=== PATIENT | male | born 1980 ===

== ENCOUNTER 2017-12-31 15:38 | Emergency (ER) | payer SELFPAY ==
[2017-12-31] MEDS ORDERED: Sodium Chloride 0.9% 1,000 ML IV STA (16:19)
--- NOTE | 2017-12-31 16:30 | ED PDOC ---
HPI: Psych/Substance Abuse Time Seen by Provider: 12/31/17 15:54 Chief Complaint (Nursing): Chest Pain Chief Complaint (Provider): Alcohol Ingestion History Per: Patient History/Exam Limitations: no limitations Onset/Duration Of Symptoms: Days (x4) Current Symptoms Are (Timing): Still Present Modifying Factor(s): Alcohol Additional Complaint(s): 37 year old male presents to the ED for alcohol intoxication, onset 4 days ago. Patient states for the past 4 days, he has been binge drinking. Patient reports of drinking one whole bottle of Tequila. Patient is now complaining of left sided chest pain associated with nausea and right lower quadrant abdominal pain. Patient also reports today he noticed bright red blood in his vomit. Denies trauma, shortness of breath, palpitations, head injury, sore throat, melena, hematochezia, and BRBPR PMD: None Provided Past Medical History Reviewed: Historical Data, Nursing Documentation, Vital Signs Vital Signs: Last Vital Signs Temp 98.3 F 12/31/17 15:47 Pulse 90 12/31/17 15:47 Resp 18 12/31/17 15:47 BP 139/86 12/31/17 15:47 Pulse Ox 99 12/31/17 15:47 - Medical History PMH: No Chronic Diseases - Surgical History Surgical History: No Surg Hx - Family History Family History: States: Unknown Family Hx - Social History Alcohol: > 2 Drinks/Day - Allergies Allergies/Adverse Reactions: Allergies Allergy/AdvReac Type Severity Reaction Status Date / Time No Known Allergies Allergy Verified 12/31/17 15:50 Review of Systems ROS Statement: Except As Marked, All Systems Reviewed And Found Negative Cardiovascular: Positive for: Chest Pain (Left sided). Negative for: Palpitations Respiratory: Negative for: Shortness of Breath Gastrointestinal: Positive for: Nausea, Vomiting (1 episode of bloody vomit. ), Abdominal Pain (right lower quadrant ). Negative for: Melena, Hematochezia Psych: Positive for: Other (EtOH Intoxication ) Physical Exam - Reviewed Nursing Documentation Reviewed: Yes Vital Signs Reviewed: Yes - Physical Exam Appears: Positive for: No Acute Distress Head Exam: Positive for: ATRAUMATIC, NORMOCEPHALIC Skin: Positive for: Normal Color, Warm, Dry Eye Exam: Positive for: Normal appearance, EOMI, PERRL Neck: Positive for: Normal, Painless ROM Cardiovascular/Chest: Positive for: Regular Rate, Rhythm. Negative for: Murmur Respiratory: Positive for: Normal Breath Sounds. Negative for: Respiratory Distress Gastrointestinal/Abdominal: Positive for: Normal Exam, Tenderness (Mild right lower quadrant ) Extremity: Positive for: Normal ROM. Negative for: Pedal Edema, Deformity Neurologic/Psych: Positive for: Alert, Oriented, Gait (steady (unassisted)), Other (Alcohol on breath. Speech is slurred. ). Negative for: Motor/Sensory Deficits - Laboratory Results Result Diagrams: 12/31/17 16:35 12/31/17 16:33 - ECG O2 Sat by Pulse Oximetry: 99 (RA) Pulse Ox Interpretation: Normal Medical Decision Making Medical Decision Making: Time: 1618 Plan: -- CT Abd & Pelvis IV Contrast -- Urinalysis -- IV Insertion -- Zofran Inj 4 mg IVP -- Pantoprazole 80 mg IVP -- Sodium Chloride IV 1000 mls/hr -- CXR Portable -- Urine Drug Screen -- EKG Time: 1927 Plan: -- Type and Screen -- Alcohol Serum -- CMP -- Lipase -- CBC with differentials -- D Dimer [COAG] -- PTT -- PT/INR 1943 Pt. began c/o chest pain which started after Reglan infusion. On re-evaluation, pt. appears anxious and is pointing to the L side of the chest. secured entrance monitor SR at [address]-T wave changes. Repeat EKG, Benadryl 50mg IV ordered. D/W Dr. Castro who agrees with care. Scribe Attestation: Documented by Bennie Christine acting as a scribe for Ever Méndez PA-C. Provider Scribe Attestation: All medical record entries made by the Scribe were at my direction and personally dictated by me. I have reviewed the chart and agree that the record accurately reflects my personal performance of the history, physical exam, medical decision making, and the department course for this patient. I have also personally directed, reviewed, and agree with the discharge instructions and disposition. Disposition - Clinical Impression Clinical Impression: Chest pain, Alcohol abuse with intoxication - Patient ED Disposition Is Patient to be Admitted: Transfer of Care (Signed out to Christian BENTON pending re-evaluation,) - Disposition Referrals: [facility] [Outside] Disposition Time: 20:00 Condition: STABLE Instructions: Chest Pain, Alcohol Abuse and Alcoholism (DC) Forms: [facility] ([place]) Print Language: JORDANIAN
[2017-12-31 16:52] LABS: BASO % 0.3 % (0.0-2.0); EOS % 0.3 % (0.0-4.0); HEMOGLOBIN 17.7 g/dL (12.0-18.0); LYMPH # 2.2 K/uL (1.0-4.3); LYMPH % 29.6 % (20.0-40.0); MEAN CELL VOLUME 83.1 fl (80.0-94.0); MEAN CORPUSCULAR HEMOGLOBIN 28.2 pg (27.0-31.0); MEAN CORPUSCULAR HGB CONC 33.9 g/dL (33.0-37.0); MEAN PLATELET VOLUME 8.8 fl (7.2-11.7); MONO # 0.3 K/uL (0.0-0.8); MONO % 3.8 % (0.0-10.0); NEUT # 4.9 K/uL (1.8-7.0); NRBC % 0.1 % (0.0-0.0); RBC 6.3 Mil/uL (4.40-5.90); RED CELL DISTRIBUTION WIDTH 13.6 % (11.5-14.5); WHITE BLOOD COUNT 7.4 K/uL (4.8-10.8)
[2017-12-31 16:58] LABS: ALB/GLOB RATIO 1.3 (1.0-2.1); ALBUMIN 4.4 g/dL (3.5-5.0); ALT/SGPT 44 U/L (21-72); AST/SGOT 39 U/L (17-59); BLOOD UREA NITROGEN 13 mg/dl (9-20); CALCIUM 8.5 mg/dL (8.4-10.2); GFR NON-AFRICAN AMERICAN > 60; LIPASE 90 U/L (23-300)
[2017-12-31] MEDS ORDERED: Iohexol 300 100 ML IJ ONE (16:58)
[2017-12-31] MEDS ORDERED: Sodium Chloride 0.9% 50 ML IV ONE (16:58)
--- NOTE | 2017-12-31 17:31 | RAD ---
Date of service: 12/31/2017 HISTORY: vomiting COMPARISON: No prior. FINDINGS: LUNGS: No active pulmonary disease. PLEURA: No significant pleural effusion identified, no pneumothorax apparent. CARDIOVASCULAR: Normal. OSSEOUS STRUCTURES: No significant abnormalities. VISUALIZED UPPER ABDOMEN: Normal. OTHER FINDINGS: None. IMPRESSION: No active disease.
[2017-12-31 17:40] LABS: PARTIAL THROMBOPLASTIN TIME 26.8 Seconds (25.6-37.1); PROTHROMBIN TIME 11.6 Seconds (9.8-13.1)
--- NOTE | 2017-12-31 18:34 | CT ---
Date of service: 12/31/2017 PROCEDURE: CT Abdomen and Pelvis with contrast HISTORY: RLQ pain COMPARISON: None. TECHNIQUE: Contrast dose: 95 mL Omnipaque 300 Radiation dose: Total exam DLP = 622.9 mGy-cm. This CT exam was performed using one or more of the following dose reduction techniques: Automated exposure control, adjustment of the mA and/or kV according to patient size, and/or use of iterative reconstruction technique. FINDINGS: LOWER THORAX: Unremarkable. LIVER: Hepatic steatosis. No gross lesion or ductal dilatation. GALLBLADDER AND BILE DUCTS: Unremarkable. PANCREAS: Unremarkable. No gross lesion or ductal dilatation. SPLEEN: Unremarkable. ADRENALS: Unremarkable. No mass. KIDNEYS AND URETERS: Unremarkable. No hydronephrosis. No solid mass. VASCULATURE: Unremarkable. No aortic aneurysm. BOWEL: Mild colonic diverticulosis. No obstruction. No gross mural thickening. APPENDIX: Prior appendectomy. PERITONEUM: Tiny fat containing umbilical hernia. Small fat containing left inguinal hernia. No free fluid. No free air. LYMPH NODES: Unremarkable. No enlarged lymph nodes. BLADDER: Unremarkable. REPRODUCTIVE: Unremarkable. BONES: No acute fracture. OTHER FINDINGS: None. IMPRESSION: No acute abdominal pelvic pathology.
[2017-12-31] MEDS ORDERED: Multivitamin (MVI) 10 ML, Thiamine 100 MG, Folic Acid 1 MG in Sodium Chloride 0.9% 1,00... IV ONE (18:49)
[2017-12-31] MEDS ORDERED: DiphenhydrAMINE 50 mg/ml Inj IVP STA (19:37)
[2017-12-31 19:49] LABS: URINE BILIRUBIN NEGATIVE (NEGATIVE); URINE BLOOD NEGATIVE (NEGATIVE); URINE CLARITY CLEAR (Clear); URINE COLOR YELLOW (YELLOW); URINE GLUCOSE (UA) NEG (Normal); URINE LEUKOCYTE ESTERASE NEG Leu/uL (Negative); URINE PROTEIN NEGATIVE (NEGATIVE); URINE UROBILINOGEN 0.2-1.0 mg/dL (0.2-1.0)
[2017-12-31 20:11] LABS: BARBITURATES, UR NEGATIVE (NEGATIVE); BENZODIAZEPINES, UR NEGATIVE (NEGATIVE); OPIATES, UR NEGATIVE (NEGATIVE); PHENCYCLIDINE, UR NEGATIVE (NEGATIVE)
--- NOTE | 2017-12-31 22:39 | ED PDOC ---
- Laboratory Results Result Diagrams: 12/31/17 16:35 12/31/17 16:33 - ECG O2 Sat by Pulse Oximetry: 99 (RA) Medical Decision Making Medical Decision Makin:00 Patient endrosed to me by Ever Méndez PA-C. Patient to be observed for sobriety. Labs reviewed. Troponin negative. D Dimer negative. CXR showed NAD. CT Abdomen WNL. 2200 Patient is sleeping comfortably, VSS. 0000 On re-evaluation, is sleeping, but arouses easily, patient reports improvement of symptoms, still c/o mild nausea and L sided chest discomfort, denies any SOB , or abdominal pain. He admits to binge drinking x 4 days, he reports he normally drinks only on the weekends. On exam, patient is AAOx3, in no acute distress. Lungs clear to auscultation, cardiac RRR, abdomen soft, non-tender, repeat neuro exam shows no focal findings. Repeat troponin ordered. Patient given zofran 4 mg IV. 0100 Repeat trop (-). VSS. Patient speaking in full sentences, no slurred speech, no tremors, able to stand up and ambulate with a steady gait. Based on history, exam and diagnostic results, plan will be for outpatient follow up. Patient instructed to follow-up with pmd or the clinic in 1-2 days without fail. Return to the emergency room at any time for any new or worsening symptoms. Patient states he fully agrees with and understands discharge instructions. States that he agrees with the plan and disposition. Verbalized and repeated discharge instructions and plan. I have given the patient opportunity to ask any additional questions. Scribe Attestation: Documented by Justin Smith, acting as a scribe for Arin Gonzales PA-C. Provider Scribe Attestation: All medical record entries made by the Ramonaibmaggie were at my direction and personally dictated by me. I have reviewed the chart and agree that the record accurately reflects my personal performance of the history, physical exam, medical decision making, and the department course for this patient. I have also personally directed, reviewed, and agree with the discharge instructions and disposition. Disposition Counseled Patient/Family Regarding: Studies Performed, Diagnosis, Need For Followup - Clinical Impression Clinical Impression: Chest pain, Alcohol abuse with intoxication - POA Present On Arrival: None - Disposition Referrals: [facility] [Outside] Disposition: Routine/Home Disposition Time: 01:00 Condition: STABLE Instructions: Chest Pain, Alcohol Abuse and Alcoholism (DC) Forms: [facility] (Tongan) Print Language: CROATIAN - PA / PARIMUTUEL CASHIER / Resident Statement / has reviewed & agrees with the documentation as recorded.
[2018-01-01 01:51] VITALS: BP 120/82; PULSE 82; RESP 18; TEMP 98
[2018-01-01 02:39] VITALS: O2SAT 99
--- NOTE | 2018-01-02 20:48 | CARD ---
APPROVED REPORT Date of service: 12/31/2017 EKG Measurement Heart [id number] <Conclusion> Normal sinus rhythm Normal ECG
== END 2018-01-01 01:56 | disposition home or self-care (01) ==
LOC: H.ER 15:38
DX: F10.129 Alcohol abuse with intoxication, unspecified (principal); R07.89 Other chest pain; R10.31 Right lower quadrant pain
CPT/HCPCS: 71045; 74177; 80053; 81003; 83690; 84484; 85025; 85378; 85610; 85730; 86850; 86900; 93005; 96374; 96375; 96376; 99285; C9113; G0480; J1200; J2405; J2765; J3411; J7030; Q9967

== ENCOUNTER 2018-09-01 13:58 | Emergency (ER) | payer OTHER ==
[2018-09-01 14:07] VITALS: O2SAT 99
[2018-09-01] MEDS ORDERED: Sodium Chloride 0.9% 1,000 ML IV SCH ×2 (15:00→16:45)
[2018-09-01 15:22] LABS: BASO % 0.6 % (0.0-2.0); EOS % 0.1 % (0.0-4.0); HEMOGLOBIN 17.1 g/dL (12.0-18.0); LYMPH # 2.3 K/uL (1.0-4.3); LYMPH % 36.9 % (20.0-40.0); MEAN CELL VOLUME 83.4 fl (80.0-94.0); MEAN CORPUSCULAR HEMOGLOBIN 28.2 pg (27.0-31.0); MEAN CORPUSCULAR HGB CONC 33.8 g/dL (33.0-37.0); MEAN PLATELET VOLUME 8.5 fl (7.2-11.7); MONO # 0.4 K/uL (0.0-0.8); MONO % 6.9 % (0.0-10.0); NEUT # 3.4 K/uL (1.8-7.0); NEUT % 55.5 % (50.0-75.0); NRBC % 0.1 % (0.0-0.0); RBC 6.05 Mil/uL (4.40-5.90); RED CELL DISTRIBUTION WIDTH 13.6 % (11.5-14.5); WHITE BLOOD COUNT 6.2 K/uL (4.8-10.8)
--- NOTE | 2018-09-01 15:39 | RAD ---
Date of service: 09/01/2018 PROCEDURE: CHEST RADIOGRAPH, 1 VIEW HISTORY: chest pain COMPARISON: 12/31/2017 FINDINGS: LUNGS: Clear. PLEURA: No pneumothorax or pleural fluid seen. CARDIOVASCULAR: No aortic atherosclerotic calcification present. Normal. OSSEOUS STRUCTURES: No significant abnormalities. VISUALIZED UPPER ABDOMEN: Normal. OTHER FINDINGS: None. IMPRESSION: No active disease.No interval pathology noted.
[2018-09-01 16:01] LABS: ALB/GLOB RATIO 1.3 (1.0-2.1); ALBUMIN 4.3 g/dL (3.5-5.0); ALT/SGPT 54 U/L (21-72); AST/SGOT 68 U/L (17-59); BLOOD UREA NITROGEN 17 mg/dl (9-20); CALCIUM 8.9 mg/dL (8.4-10.2); GFR NON-AFRICAN AMERICAN > 60; LIPASE 105 U/L (23-300)
--- NOTE | 2018-09-01 16:22 | ED PDOC ---
HPI: Chest Pain Additional History Per: Patient Additional Complaint(s): This 37 y/o with no significant PMH comes to the ER c/o 1 day hx of non radiating left side chest pain. Patient reports he has been binge drinking hard liquor since last 3 days, chest pain started yesterday while he was laying down, comes and goes, sharp in nature, 5/10, changes with respiration, + dizziness, mild SOB, + nausea and + palpitations. denies any fever/chills/vomiting, diarrhea or trauma. PMH: Denies PSH: Denies Allg: NKDA SH: Binge drinking FH: + heart disease and stroke <Yady Mendoza - Last Filed: 09/01/18 17:34> <Francis Mina III - Last Filed: 09/02/18 12:51> Time Seen by Provider: 09/01/18 14:40 Chief Complaint (Nursing): Chest Pain Supervising Attending Note - Attestation: I have personally seen and examined this patient.: Yes I have fully participated in the care of the patient.: Yes I have reviewed all pertinent clinical information: Yes - Notes: Notes:: pt seen/examined and results reviewed re-eval vitals stable, has palpable anterior chest tenderness but CXR neg, no palpable mass or abscess, stable for outpatient followup, encourage alcohol abstinence. <Francis Mina III - Last Filed: 09/02/18 12:51> Past Medical History Vital Signs: Last Vital Signs Temp 97.7 F 09/01/18 14:06 Pulse 90 09/01/18 14:06 Resp 16 09/01/18 14:06 BP 132/76 09/01/18 14:06 Pulse Ox 99 09/01/18 14:06 - Surgical History Surgical History: Appendectomy - Family History Family History: States: Unknown Family Hx - Immunization History Hx Tetanus Toxoid Vaccination: No Hx Influenza Vaccination: No Hx Pneumococcal Vaccination: No <Yady Mendoza - Last Filed: 09/01/18 17:34> Vital Signs: Last Vital Signs Temp 98.3 F 09/01/18 17:46 Pulse 71 09/01/18 17:46 Resp 17 09/01/18 17:46 BP 138/79 09/01/18 17:46 Pulse Ox 99 09/01/18 17:46 <Francis Mina III - Last Filed: 09/02/18 12:51> - Allergies Allergies/Adverse Reactions: Allergies Allergy/AdvReac Type Severity Reaction Status Date / Time No Known Allergies Allergy Verified 09/01/18 14:06 TWIN Risk Score for UA/NSTEMI - TWIN Risk Score Age > 64: NO 3 or more CAD Risk Factors: NO Known CAD (Stenosis greater than 50%): NO Aspirin use in past 7 days: NO Severe Angina: NO EKG ST changes greater than 0.5mm: NO TWIN Score: 0 Risk %: 5% <Yady Mendoza - Last Filed: 09/01/18 17:34> Curb-65 Severity Score - CURB-65 Severity Score Confusion: No Respiratory Rate greater than/equal to 30: No Systolic BP <90 or Diastolic BP less than/equal 60mmHg: No Age >64: No Curb-65 Score: 0 Percentage 30-day mortality: 0.6% <Yady Mendoza - Last Filed: 09/01/18 17:34> Review of Systems Constitutional: Negative for: Fever, Chills Eyes: Negative for: Pain, Vision Change, Conjunctivae Inflammation ENT: Negative for: Ear Pain, Ear Discharge, Nose Pain, Nose Discharge Cardiovascular: Positive for: Chest Pain, Palpitations. Negative for: Orthopnea, Paroxysmal Noc. Dyspnea Respiratory: Positive for: Shortness of Breath. Negative for: Cough, Hemoptysis Gastrointestinal: Positive for: Nausea. Negative for: Vomiting, Abdominal Pain, Diarrhea Genitourinary Male: Negative for: Dysuria, Frequency Musculoskeletal: Negative for: Neck Pain Skin: Negative for: Rash Neurological: Negative for: Weakness, Numbness, Incoordination Psych: Negative for: Anxiety <Yady Mendoza - Last Filed: 09/01/18 17:34> Physical Exam - Physical Exam Appears: Positive for: No Acute Distress Head Exam: Positive for: ATRAUMATIC, NORMAL INSPECTION, NORMOCEPHALIC Skin: Positive for: Normal Color. Negative for: Rash Eye Exam: Positive for: Normal appearance ENT: Positive for: Normal ENT Inspection Neck: Positive for: Normal Cardiovascular/Chest: Positive for: Regular Rate, Rhythm. Negative for: Chest Non Tender (mild tenderness below left nipple area), Bradycardia, Tachycardia, Friction Rub, Irregularly Irregular Respiratory: Positive for: Normal Breath Sounds. Negative for: Decreased Breath Sounds, Accessory Muscle Use, Crackles, Rales, Stridor, Wheezing, Respiratory Distress Gastrointestinal/Abdominal: Positive for: Normal Exam, Soft. Negative for: Te nderness Back: Positive for: Normal Inspection. Negative for: L CVA Tenderness, R CVA Tenderness Extremity: Positive for: Normal ROM. Negative for: Tenderness, Pedal Edema Neurological/Psych: Positive for: Awake, Alert, Normal Tone, assembler utility buildings II-XII <Yady Mendoza - Last Filed: 09/01/18 17:34> - Laboratory Results Result Diagrams: 09/01/18 15:17 09/01/18 15:17 Lab Results: Total Bilirubin 1.2 mg/dl (0.2-1.3) 09/01/18 15:17 AST 68 U/L (17-59) H D 09/01/18 15:17 ALT 54 U/L (21-72) 09/01/18 15:17 Alkaline Phosphatase 58 U/L (38-126) 09/01/18 15:17 Total Protein 7.6 G/DL (6.3-8.2) 09/01/18 15:17 Albumin 4.3 g/dL (3.5-5.0) 09/01/18 15:17 Globulin 3.3 gm/dL (2.2-3.9) 09/01/18 15:17 Albumin/Globulin Ratio 1.3 (1.0-2.1) 09/01/18 15:17 Lipase 105 U/L (23-300) 09/01/18 15:17 - ECG O2 Sat by Pulse Oximetry: 99 - Progress ED Course And Treament: A/P: 37 y/o with no significant PMH comes to the ER c/o 1 day hx of non radiating left side chest pain. - CBC - CMP - Trop - Alcohol serum - Urine drug - EKG - CXR - Zofran Case discussed with Dr. Torres, agrees with plan CBC, CMP, EKG, CXR : Reviewed WNL Elevated serum alcohol CIWA SCORE 3 Patient seen and examined again with Dr. Mina, agrees with Discharge plan. Re-evaluation Time: 17:27 Condition: Re-examined <Yady Mendoza - Last Filed: 09/01/18 17:34> - Laboratory Results Result Diagrams: 09/01/18 15:17 09/01/18 15:17 Lab Results: Troponin I < 0.0120 ng/mL (0.00-0.120) 09/01/18 15:17 Total Bilirubin 1.2 mg/dl (0.2-1.3) 09/01/18 15:17 AST 68 U/L (17-59) H D 09/01/18 15:17 ALT 54 U/L (21-72) 09/01/18 15:17 Alkaline Phosphatase 58 U/L (38-126) 09/01/18 15:17 Total Protein 7.6 G/DL (6.3-8.2) 09/01/18 15:17 Albumin 4.3 g/dL (3.5-5.0) 09/01/18 15:17 Globulin 3.3 gm/dL (2.2-3.9) 09/01/18 15:17 Albumin/Globulin Ratio 1.3 (1.0-2.1) 09/01/18 15:17 Lipase 105 U/L (23-300) 09/01/18 15:17 <Francis Mina III - Last Filed: 09/02/18 12:51> Medical Decision Making Medical Decision Making: Alcohol intoxication/Non cardiac chest pain <Yady Mendoza - Last Filed: 09/01/18 17:34> Disposition - Patient ED Disposition Is Patient to be Admitted: No - Disposition Disposition: Routine/Home Disposition Time: 17:30 <Yady Mendoza - Last Filed: 09/01/18 17:34> <Francis Mina III - Last Filed: 09/02/18 12:51> - Clinical Impression Clinical Impression: Alcohol abuse with intoxication, Atypical chest pain, Alcohol withdrawal - Disposition Referrals: [facility] [Provider Group] Condition: FAIR Additional Instructions: F/u with PMD in 2-3 days Return to ER if symptoms get worse or do not resolve Avoid Alcohol Instructions: Chest Pain, Alcohol Withdrawal (DC), Alcohol Abuse and Alcoholism (DC) Forms: [employer] (Turkmen) Print Language: KAZAKH
[2018-09-01 17:47] VITALS: BP 138/79; PULSE 71; RESP 17; TEMP 98.3
--- NOTE | 2018-09-01 19:29 | CARD ---
APPROVED REPORT Date of service: 09/01/2018 EKG Measurement Heart [id number] [place] [id number] <Conclusion> Normal sinus rhythm Normal ECG
--- NOTE | 2018-09-03 14:01 | CARD ---
APPROVED REPORT Date of service: 09/01/2018 EKG Measurement Heart [id number] [place] 146P32 [id number] <Conclusion> Normal sinus rhythm Normal ECG
== END 2018-09-01 17:46 | disposition home or self-care (01) ==
LOC: H.ER 13:58
DX: F10.129 Alcohol abuse with intoxication, unspecified (principal); R07.89 Other chest pain; Y90.7 Blood alcohol level of 200-239 mg/100 ml; F10.239 Alcohol dependence with withdrawal, unspecified
CPT/HCPCS: 71045; 80053; 80320; 83690; 84484; 85025; 93005; 96361; 96374; 99283; J2405; J7030